=== PATIENT | female | born 1960 | race Caucasian/White ===

== ENCOUNTER 2021-09-27 21:05 | Emergency (ER) | payer BC, OTHER ==
[2021-09-27 22:20] VITALS: BMI 23.9
[2021-09-27 23:21] LABS: BASO % 0.6 % (0-2.0); HEMATOCRIT 32.3 % (32.4-45.2); HEMOGLOBIN 10.9 GM/dL (10.7-15.3); LYMPH % 27.2 % (8-40); MCH 28.3 pg (25.7-33.7); MCHC 33.6 g/dl (32.0-36.0); MEAN CELL VOLUME 84.4 fl (80-96); MEAN PLT VOLUME 9.1 fl (7.5-11.1); MONO % 9.6 % (3.8-10.2); NEUT % 60.6 % (42.8-82.8); RBC 3.83 M/mm3 (3.60-5.2); RDW 14.1 % (11.6-15.6); WHITE BLOOD COUNT 8.4 K/mm3 (4.0-10.0)
[2021-09-27 23:24] LABS: EPI CELLS 13 /uL (0-25.1); HYALINE CASTS 0 /uL (0-3.1); PH,URINE 6.5 (5.0-8.0); URINE APPEARANCE CLEAR; URINE BACTERIA 14 /uL (0-1359); URINE BILIRUBIN NEGATIVE (NEGATIVE); URINE COLOR YELLOW; URINE GLUCOSE (UA) NEGATIVE (NEGATIVE); URINE KETONE NEGATIVE (NEGATIVE); URINE LEUK ESTERASE 1+ (NEGATIVE); URINE NITRITE NEGATIVE (NEGATIVE); URINE PROTEIN NEGATIVE (NEGATIVE); URINE RBC 2 /uL (0-23.9); URINE WBC 54 /uL (0-25.8)
[2021-09-27 23:25] LABS: INR 1.09 (0.83-1.09); PROTHROMBIN TIME (PATIENT) 12.2 SEC (9.7-13.0)
[2021-09-27 23:28] LABS: ACTIVATED PTT 24.6 SECONDS (25.2-36.5)
[2021-09-27 23:31] LABS: METHADONE, UR NEGATIVE (NEGATIVE); URINE AMPHETAMINES NEGATIVE (NEGATIVE); URINE BARBITURATES NEGATIVE (NEGATIVE)
[2021-09-27 23:32] LABS: PHENCYCLIDINE,URINE NEGATIVE (NEGATIVE)
[2021-09-27 23:33] LABS: URINE BENZODIAZEPINES NEGATIVE (NEGATIVE)
[2021-09-27 23:34] LABS: OPIATES, URI NEGATIVE (NEGATIVE)
[2021-09-27 23:38] LABS: CHLORIDE 107 mmol/L (98-107); SODIUM 141 mmol/L (136-145)
[2021-09-27 23:39] LABS: COCAINE, UR NEGATIVE (NEGATIVE)
[2021-09-27 23:40] LABS: ALBUMIN 2.9 g/dl (3.4-5.0); ANION GAP 4 MMOL/L (8-16); BLOOD UREA NITROGEN 15.2 mg/dL (7-18); CALCIUM 8.2 mg/dL (8.5-10.1); CO2 30 mmol/L (21-32); GLUCOSE,RANDOM 92 mg/dL (74-106)
[2021-09-27 23:43] LABS: CREATININE 0.8 mg/dL (0.55-1.3); SGOT/AST 27 U/L (15-37); SGPT/ALT 54 U/L (13-61)
[2021-09-27] MEDS ORDERED: CEPHALEXIN MONOHYDRATE 500 MG CAPSULE (UD) PO ONE (23:43)
[2021-09-27 23:45] LABS: BILIRUBIN,TOTAL 0.2 mg/dL (0.2-1); TOT PROT 5.8 g/dl (6.4-8.2)
[2021-09-27 23:46] LABS: ALK PHOS 192 U/L (45-117)
[2021-09-28] MEDS ORDERED: CEPHALEXIN MONOHYDRATE 500 MG CAPSULE (UD) ONE ×2 (00:16→09:36)
[2021-09-28 00:34] LABS: PLATELET ESTIMATE NORMAL
[2021-09-28 00:35] LABS: PLATELET COUNT 338 10^3/uL (134-434)
[2021-09-28] MEDS ORDERED: clonazePAM 0.5 MG TABLET PO ONE ×2 (07:41→19:19)
[2021-09-28] MEDS ORDERED: clonazePAM 0.5 MG TABLET ONE ×2 (07:50→19:20)
[2021-09-28] MEDS ORDERED: CEPHALEXIN MONOHYDRATE 500 MG CAPSULE (UD) PO ONE (08:00)
[2021-09-28 15:39] VITALS: BP 134/75; PULSE 69; TEMP 98.4
== END 2021-09-28 23:13 | disposition home or self-care (01) ==
LOC: JER 21:05
DX: R45.851 Suicidal ideations (principal); N39.0 Urinary tract infection, site not specified
CPT/HCPCS: 36415; 71045-TC-FY; 80053; 80307; 81003; 82962; 84443; 85025; 85610; 85730; 87086; 93005; 93010; 99284-25; C9803; U0003; U0005